=== PATIENT | male | born 1950 | race Two or more races ===

== ENCOUNTER 2016-10-29 09:20 | Outpatient (CLI) | payer MEDICARE, MEDICAID | END 2016-10-29 23:59 | disposition home or self-care (01) | LOC: RAD 09:20 | PROVIDERS: ATTEND Surgery | DX: Z01.818 Encounter for other preprocedural examination (principal); Q25.46 Tortuous aortic arch | CPT/HCPCS: 71020-TC ==

== ENCOUNTER 2016-11-02 06:10 | Day surgery (SDC) | payer MEDICARE, MEDICAID ==
[~2016-11-02] VITALS: Ht 172.7 cm; Wt 85.7 kg
[2016-11-02] MEDS ORDERED: IV LR 1000 ML 1,000 ML ONE (06:47)
[2016-11-02] MEDS ORDERED: SECONDARY IV SET 1 EA INFUS.SET MC ONE (06:48)
[2016-11-02] MEDS ORDERED: IV SET PRIMARY 1 EA INFUS.SET MC ONE (06:48)
[2016-11-02] MEDS ORDERED: NEEDLELESS EST SET LARGE BORE 1 EA INFUS.SET MC ONE (06:48)
[2016-11-02] MEDS ORDERED: CEFAZOLIN SODIUM/DEXTROSE,ISO 50 ML IV ONE (06:48)
[2016-11-02] MEDS ORDERED: SUCCINYLCHOLINE CHLORIDE 20 MG/ML VIAL ONE (08:29)
[2016-11-02] MEDS ORDERED: FENTANYL PF 250MCG/5ML AMPUL ONE (08:29)
[2016-11-02] MEDS ORDERED: ROCURONIUM BROMIDE 50 MG/5 ML ONE (08:30)
[2016-11-02] MEDS ORDERED: BUPIVACAINE MPF W/EPI 0.25% 30 ML VIAL ONE (08:36)
[2016-11-02] MEDS ORDERED: LIDOCAINE HCL/PF 1% 30 ML SDV ONE (08:36)
[2016-11-02] MEDS ORDERED: ACETAMINOPHEN 325 MG TABLET ONE (10:43)
[2016-11-02] MEDS ORDERED: GABAPENTIN 300 MG CAPSULE PO ONE (11:00)
[2016-11-02] MEDS ORDERED: IBUPROFEN 800 MG TABLET PO ONE (11:00)
[2016-11-02] MEDS ORDERED: ACETAMINOPHEN 325 MG TABLET PO ONE (11:30)
[2016-11-02] MEDS ORDERED: IBUPROFEN 400 MG TABLET PO ONE (11:30)
[2016-11-02] MEDS ORDERED: HYDROCODONE/APAP 10/325MG 1 EA TABLET PO PRN (11:30)
[2016-11-02] MEDS ORDERED: IV LR 1000 ML 1,000 ML IV PRN (11:30)
== END 2016-11-02 11:30 ==
LOC: DS 06:10
PROVIDERS: ATTEND Surgery
DX: K40.31 Unilateral inguinal hernia, with obstruction, without gangrene, recurrent (principal); I10 Essential (primary) hypertension; E11.9 Type 2 diabetes mellitus without complications; Z87.11 Personal history of peptic ulcer disease
CPT/HCPCS: 82962-TC; A6209; A6402; C1781; J0330; J0690; J1100; J1885; J2001; J2405; J2704; J3010; J3490; J7120